=== PATIENT | male | born 1940 | race Caucasian/White ===

== ENCOUNTER 2019-02-14 22:31 | Observation (INO) | payer OTHER, BC ==
[2019-02-14 22:59] LABS: EOS % 5.3 % (0-4.5); HEMATOCRIT 45.3 % (35.4-49); HEMOGLOBIN 14.8 GM/dl (11.7-16.9); LYMPH % 33.3 % (8-40); MCH 29.9 pg (25.7-33.7); MCHC 32.7 g/dl (32.0-35.9); MEAN CELL VOLUME 91.4 fl (80-96); MEAN PLT VOLUME 8.6 fl (7.5-11.1); MONO % 12.2 % (3.8-10.2); NEUT % 48.2 % (42.8-82.8); PLATELET COUNT 163 K/MM3 (134-434); RBC 4.96 M/mm3 (4.00-5.60); RDW 12.6 % (11.9-15.9); WHITE BLOOD COUNT 6.4 K/mm3 (4.0-10.8)
[2019-02-14 23:13] LABS: ALBUMIN 3.8 g/dl (3.4-5.0); BILIRUBIN,TOTAL 0.7 mg/dl (0.2-1); CALCIUM 8.9 mg/dl (8.5-10); CREATININE 1.6 mg/dl (0.55-1.3); POTASSIUM 4.4 mmol/L (3.5-5.1)
--- NOTE | 2019-02-15 01:13 | PDOC ---
Documentation entered by Dilia Ann SCRIBE, acting as scribe for Carmine Matamoros MD. Carmine Matamoros MD: This documentation has been prepared by the Seth gould Brenda, SCRIBE, under my direction and personally reviewed by me in its entirety. I confirm that the documentation accurately reflects all work, treatment, procedures, and medical decision making performed by me. History of Present Illness - General Chief Complaint: Chest Pain Stated Complaint: CHEST PAIN History Source: Patient Exam Limitations: No Limitations - History of Present Illness Initial Comments: 02/14/19 23:03 The patient is an 78 year old male, with a significant PMH of CAD s/p CABG, cardiac stent x2, prostate CA s/p prostatectomy, AFib s/p PPM, HTN, DM and hypercholesterolemia, who presents to the emergency department with chest pain since 8:15pm. As per patients , on the bedside, the patient was frightened by a dog and felt a sudden onset of chest pain. The patient then consulted his ultimate hoops trainer, and was told to come into the ED. The patient denies shortness of breath, headache and dizziness. Denies fever, chills, nausea, vomiting, diarrhea and constipation. Denies dysuria, frequency, urgency and hematuria. Allergies: NKA Past surgical history: cholecystectomy, CABG X1, STENT X2 Social history: Former smoker, quit in 1989. Occasional alcohol use. Focusing Machine Operator: Dr. Richardson 02/14/19 23:10 Past History - Past Medical History Allergies/Adverse Reactions: Allergies Allergy/AdvReac Type Severity Reaction Status Date / Time ciprofloxacin Allergy Severe Difficulty Verified 02/15/16 20:59 Breathing Penicillins Allergy Severe Difficulty Verified 02/15/16 20:59 Breathing procaine HCl [From Novocain] Allergy Severe Difficulty Verified 02/15/16 20:59 Breathing Home Medications: Ambulatory Orders Carvedilol [Coreg] 12.5 mg PO BID 02/15/16 Dabigatran Etexilate Mesylate [Pradaxa -] 150 mg PO BID 02/15/16 Levothyroxine [Synthroid -] 100 mcg PO DAILY 02/15/16 Linagliptin/Metformin HCl [Jentadueto 2.5 mg-1000 mg Tab] 1 each PO BID Simvastatin 10 mg PO HS 02/15/16 Escitalopram Oxalate [Lexapro -] 5 mg PO DAILY 02/14/19 Isosorbide Dinitrate 02/14/19 Ranitidine HCl [Zantac] 150 mg PO DAILY 02/14/19 Sacubitril/Valsartan [Entresto 24 mg-26 mg Tablet] 1 each PO DAILY 02/14/19 Cancer: Yes (PROSTATE) Cardiac Disorders: Yes (AFIB, PPM, LBBB) COPD: No Diabetes: Yes HTN: Yes Hypercholesterolemia: Yes Kidney Stones: Yes Thyroid Disease: Yes - Surgical History Cardiac Surgery: Yes (CABG X1, STENT X1) Cholecystectomy: Yes - Suicide/Smoking/Psychosocial Hx Smoking History: Former smoker Have you smoked in the past 12 months: No If you are a former smoker, when did you quit?: 1989 Alcohol Use: Yes (OCCASIONAL) Drug/Substance Use Hx: No Substance Use Type: None Review of Systems - Review of Systems Able to Perform ROS?: Yes Comments:: 02/14/19 23:03 GENERAL/CONSTITUTIONAL: No fever or chills. No weakness. HEAD, EYES, EARS, NOSE AND THROAT: No change in vision. No ear pain or discharge. No sore throat. CARDIOVASCULAR: +Chest pain. No shortness of breath. RESPIRATORY: No cough, wheezing, or hemoptysis. GASTROINTESTINAL: No nausea, vomiting, diarrhea or constipation. GENITOURINARY: No dysuria, frequency, or change in urination. MUSCULOSKELETAL: No joint or muscle swelling or pain. No neck or back pain. SKIN: No rash NEUROLOGIC: No headache, vertigo, loss of consciousness, or change in strength/ sensation. ENDOCRINE: No increased thirst. No abnormal weight change. HEMATOLOGIC/LYMPHATIC: No anemia, easy bleeding, or history of blood clots. ALLERGIC/IMMUNOLOGIC: No hives or skin allergy. Is the patient limited Guyanese proficient: No *Physical Exam - Vital Signs Last Vital Signs Temp Pulse Resp BP Pulse Ox 98.1 F 60 16 139/76 99 02/14/19 22:51 02/14/19 22:51 02/14/19 22:51 02/14/19 22:51 02/14/19 22:51 - Physical Exam Comments: 02/14/19 23:04 GENERAL: Awake, alert, and fully oriented, in no acute distress HEAD: No signs of trauma EYES: PERRLA, EOMI, sclera anicteric, conjunctiva clear ENT: Auricles normal inspection, hearing grossly normal, nares patent, oropharynx clear without exudates. Moist mucosa NECK: Normal ROM, supple, no lymphadenopathy, JVD, or masses LUNGS: Breath sounds equal, clear to auscultation bilaterally. No wheezes, and no crackles HEART: Regular rate and rhythm, normal S1 and S2, no murmurs, rubs or gallops ABDOMEN: Soft, nontender, normoactive bowel sounds. No guarding, no rebound. No masses EXTREMITIES: Normal range of motion, no edema. No clubbing or cyanosis. No cords, erythema, or tenderness NEUROLOGICAL: Cranial nerves II through XII grossly intact. Normal speech, normal gait SKIN: Warm, Dry, normal turgor, no rashes or lesions noted. ED Treatment Course - LABORATORY CBC & Chemistry Diagram: 02/14/19 22:40 02/14/19 22:40 - ADDITIONAL ORDERS Additional order review: Laboratory Results 02/14/19 02/14/19 22:40 22:40 Sodium 139 Potassium 4.4 Chloride 104 Carbon Dioxide 27 Anion Gap 8 BUN 21.0 H Creatinine 1.6 H Est GFR (CKD-EPI)AfAm 46.47 Est GFR (CKD-EPI)NonAf 40.09 Random Glucose 142 H Calcium 8.9 Total Bilirubin 0.7 AST 20 ALT 12 L Alkaline Phosphatase 65 Troponin I < 0.03 Total Protein 7.0 Albumin 3.8 02/14/19 22:40 RBC 4.96 MCV 91.4 MCHC 32.7 RDW 12.6 MPV 8.6 Neutrophils % 48.2 D Lymphocytes % 33.3 D Monocytes % 12.2 H D Eosinophils % 5.3 H D Basophils % 1.0 D - RADIOLOGY Radiology Studies Ordered: Category Date Time Status CHEST PA & LAT [RAD] Stat Radiology 02/14/19 22:45 Taken Medical Decision Making - Medical Decision Making 02/14/19 23:29 Call placed to Focusing Machine Operator Dr. Sanders at 23:49 Dr. Sanders would like the patient admitted and transferred to [facility] in the morning. Dr. Richardson's office number - 02/15/19 01:13 Heart 6 cp admit for serial enzymes and EKg monitoring. Will add AC for increasing troponin His ultimate hoops trainer requested transfer to [facility] in AM for provocative testing. See contact # above *DC/Admit/Observation/Transfer Diagnosis at time of Disposition: Chest pain Qualifiers: Chest pain type: other chest pain Qualified Code(s): R07.89 - Other chest pain ; R07.8 - Other chest pain - Discharge Dispostion Condition at time of disposition: Stable Decision to Admit order: Yes Decision to Admit order Date/Time: Decision to Admit Order Category Date Time Status Decision to Admit to Hospital Routine Admission 02/15/19 00:07 Active - Referrals - Patient Instructions - Post Discharge Activity
[2019-02-15 01:23] VITALS: BMI 25.2
[2019-02-15 06:49] VITALS: BP 103/60; PULSE 65; TEMP 98.7
--- NOTE | 2019-02-15 08:00 | HP ---
CHIEF COMPLAINT: Chest pain Cardiology: Dr. Sami Shanks, [facility] HISTORY OF PRESENT ILLNESS: 78 year-old male with a PMH significant for HTN, HLD, CAD s/p CABG s/p stents x 2, afib s/p PPM, and NIDDM. Patient presented to the ED for evaluation of chest pain which started at around 8:15pm. Patient was frightened by a dog and felt a sudden onset of chest pain. The pain, described as an intense pressure, lasted until around 11:00pm. It has not recurred. Patient contacted his covered buckle assembler, Dr. Shanks, and arrangements are in progress for transfer to [facility] for cardiac catheterization. ER course was notable for: (1) Troponin neg x 1 (2) ECG: afib @66bpm, LBBB Recent Travel: No PAST MEDICAL HISTORY: Hypertension Hyperlipidemia Coronary artery disease Atrial fibrillation NIDDM PAST SURGICAL HISTORY: Cholecystectomy CABG Cardiac stents x 2 PPM Social History: Smoking: quit 1989 Alcohol: occasional Drugs: no Family History: Allergies ciprofloxacin Allergy (Severe, Verified 02/15/16 20:59) Difficulty Breathing Penicillins Allergy (Severe, Verified 02/15/16 20:59) Difficulty Breathing procaine HCl [From Novocain] Allergy (Severe, Verified 02/15/16 20:59) Difficulty Breathing HOME MEDICATIONS: Home Medications Medication Instructions Recorded Carvedilol [Coreg] 12.5 mg PO BID 02/15/16 Dabigatran Etexilate Mesylate 150 mg PO BID 02/15/16 [Pradaxa -] Levothyroxine [Synthroid -] 100 mcg PO DAILY 02/15/16 Linagliptin/Metformin HCl 1 each PO BID 02/15/16 [Jentadueto 2.5 mg-1000 mg Tab] Simvastatin 10 mg PO HS 02/15/16 Escitalopram Oxalate [Lexapro -] 5 mg PO DAILY 02/14/19 Isosorbide Dinitrate 02/14/19 Ranitidine HCl [Zantac] 150 mg PO DAILY 02/14/19 Sacubitril/Valsartan [Entresto 24 1 each PO BID 02/14/19 mg-26 mg Tablet] REVIEW OF SYSTEMS CONSTITUTIONAL: Absent: fever, chills, diaphoresis, generalized weakness, malaise, loss of appetite, weight change HEENT: Absent: rhinorrhea, nasal congestion, throat pain, throat swelling, difficulty swallowing, mouth swelling, ear pain, eye pain, visual changes CARDIOVASCULAR: +chest pain Absent: syncope, palpitations, irregular heart rate, lightheadedness, peripheral edema RESPIRATORY: Absent: cough, shortness of breath, dyspnea with exertion, orthopnea, wheezing, stridor, hemoptysis GASTROINTESTINAL: Absent: abdominal pain, abdominal distension, nausea, vomiting, diarrhea, constipation, melena, hematochezia GENITOURINARY: Absent: dysuria, frequency, urgency, hesitancy, hematuria, flank pain, genital pain MUSCULOSKELETAL: Absent: myalgia, arthralgia, joint swelling, back pain, neck pain SKIN: Absent: rash, itching, pallor HEMATOLOGIC/IMMUNOLOGIC: Absent: easy bleeding, easy bruising, lymphadenopathy, frequent infections ENDOCRINE: Absent: unexplained weight gain, unexplained weight loss, heat intolerance, cold intolerance NEUROLOGIC: Absent: headache, focal weakness or paresthesias, dizziness, unsteady gait, seizure, mental status changes, bladder or bowel incontinence PSYCHIATRIC: Absent: anxiety, depression, suicidal or homicidal ideation, hallucinations. PHYSICAL EXAMINATION Vital Signs - 24 hr 02/14/19 02/15/19 02/15/19 22:51 01:01 03:36 Temperature 98.1 F 97.7 F 98.7 F Pulse Rate 60 68 65 Respiratory 16 17 17 Rate Blood Pressure 139/76 111/63 103/60 O2 Sat by Pulse 99 100 99 Oximetry (%) GENERAL: Awake, alert, and fully oriented, in no acute distress. HEAD: Normal with no signs of trauma. EYES: Pupils equal, round and reactive to light, extraocular movements intact, sclera anicteric, conjunctiva clear. No lid lag. EARS, NOSE, THROAT: Ears normal, nares patent, oropharynx clear without exudates. Moist mucous membranes. NECK: Normal range of motion, supple without lymphadenopathy, JVD, or masses. LUNGS: Breath sounds equal, clear to auscultation bilaterally. No wheezes, and no crackles. No accessory muscle use. HEART: Regular rate and rhythm, normal S1 and S2 without murmur, rub or gallop. ABDOMEN: Soft, nontender, not distended, normoactive bowel sounds, no guarding, no rebound, no masses. No hepatomegaly or splenomegaly. MUSCULOSKELETAL: Normal range of motion at all joints. No bony deformities or tenderness. No CVA tenderness. UPPER EXTREMITIES: 2+ pulses, warm, well-perfused. No cyanosis. No clubbing. No peripheral edema. LOWER EXTREMITIES: 2+ pulses, warm, well-perfused. No calf tenderness. No peripheral edema. NEUROLOGICAL: Cranial nerves II-XII intact. Normal speech. Normal gait. PSYCHIATRIC: Cooperative. Good eye contact. Appropriate mood and affect. SKIN: Warm, dry, normal turgor, no rashes or lesions noted, normal capillary refill. Laboratory Results - last 24 hr 02/14/19 02/14/19 02/14/19 22:40 22:40 22:40 WBC 6.4 RBC 4.96 Hgb 14.8 Hct 45.3 MCV 91.4 MCH 29.9 MCHC 32.7 RDW 12.6 Plt Count 163 MPV 8.6 Absolute Neuts (auto) 3.1 Neutrophils % 48.2 D Lymphocytes % 33.3 D Monocytes % 12.2 H D Eosinophils % 5.3 H D Basophils % 1.0 D Sodium 139 Potassium 4.4 Chloride 104 Carbon Dioxide 27 Anion Gap 8 BUN 21.0 H Creatinine 1.6 H Est GFR (CKD-EPI)AfAm 46.47 Est GFR (CKD-EPI)NonAf 40.09 Random Glucose 142 H Calcium 8.9 Total Bilirubin 0.7 AST 20 ALT 12 L Alkaline Phosphatase 65 Troponin I < 0.03 Total Protein 7.0 Albumin 3.8 ASSESSMENT/PLAN 78 year-old male with a PMH significant for HTN, HLD, CAD s/p CABG s/p stents x 2, afib s/p PPM, and NIDDM. Admitted for chest pain. Chest pain --troponin neg x 1, second pending --serial ECGs: afib, rate-controlled, LBBB --CXR: unremarkable --will give morning dose of cardiac meds, HOLD Pradaxa --NPO --NS@50mL/hr Dispo: transfer to [facility] for cardiac cath; receiving Dr. Marko Norton Visit type - Emergency Visit Emergency Visit: Yes ED Registration Date: 02/15/19 Care time: The patient presented to the Emergency Department on the above date and was hospitalized for further evaluation of their emergent condition. - New Patient This patient is new to me today: Yes Date on this admission: 02/15/19 - Critical Care Critical Care patient: No
[2019-02-15 08:30] LABS: BASO % 0.9 % (0-2.0); EOS % 4.8 % (0-4.5); HEMATOCRIT 45.2 % (35.4-49); HEMOGLOBIN 14.8 GM/dl (11.7-16.9); LYMPH % 27.3 % (8-40); MCH 29.6 pg (25.7-33.7); MCHC 32.8 g/dl (32.0-35.9); MEAN PLT VOLUME 8.5 fl (7.5-11.1); PLATELET COUNT 145 K/MM3 (134-434); RBC 5.02 M/mm3 (4.00-5.60); RDW 12.7 % (11.9-15.9); WHITE BLOOD COUNT 5.8 K/mm3 (4.0-10.8)
[2019-02-15] MEDS ORDERED: LEVOTHYROXINE NA 75 MCG TABLET (FP) PO SCH (08:45)
[2019-02-15] MEDS ORDERED: SODIUM CHLORIDE 1,000 ML IV SCH (08:45)
--- NOTE | 2019-02-15 08:58 | DS ---
Physical Exam: SUBJECTIVE: Patient seen and examined. No further episodes of chest pain. OBJECTIVE: Vital Signs Period Temp Pulse Resp BP Sys/Hernández Pulse Ox Last 24 Hr 97.7 F-98.7 F 60-68 16-17 103-139/60-76 99-100 PHYSICAL EXAM GENERAL: The patient is awake, alert, and fully oriented, in no acute distress. LUNGS: Breath sounds equal, clear to auscultation bilaterally, no wheezes, no crackles, no accessory muscle use. HEART: Regular rate and rhythm, S1, S2 ABDOMEN: Soft, nontender, nondistended EXTREMITIES: 2+ pulses, warm, well-perfused, no edema. NEUROLOGICAL: Cranial nerves II through XII grossly intact. Normal speech, gait not observed. LABS Laboratory Results - last 24 hr 02/14/19 02/14/19 02/14/19 22:40 22:40 22:40 WBC 6.4 RBC 4.96 Hgb 14.8 Hct 45.3 MCV 91.4 MCH 29.9 MCHC 32.7 RDW 12.6 Plt Count 163 MPV 8.6 Absolute Neuts (auto) 3.1 Neutrophils % 48.2 D Lymphocytes % 33.3 D Monocytes % 12.2 H D Eosinophils % 5.3 H D Basophils % 1.0 D Sodium 139 Potassium 4.4 Chloride 104 Carbon Dioxide 27 Anion Gap 8 BUN 21.0 H Creatinine 1.6 H Est GFR (CKD-EPI)AfAm 46.47 Est GFR (CKD-EPI)NonAf 40.09 Random Glucose 142 H Calcium 8.9 Total Bilirubin 0.7 AST 20 ALT 12 L Alkaline Phosphatase 65 Troponin I < 0.03 Total Protein 7.0 Albumin 3.8 02/15/19 08:18 WBC 5.8 RBC 5.02 Hgb 14.8 Hct 45.2 MCV 90.0 MCH 29.6 MCHC 32.8 RDW 12.7 Plt Count 145 MPV 8.5 Absolute Neuts (auto) 3.0 Neutrophils % 54.0 Lymphocytes % 27.3 Monocytes % 13.0 H Eosinophils % 4.8 H Basophils % 0.9 Sodium Potassium Chloride Carbon Dioxide Anion Gap BUN Creatinine Est GFR (CKD-EPI)AfAm Est GFR (CKD-EPI)NonAf Random Glucose Calcium Total Bilirubin AST ALT Alkaline Phosphatase Troponin I Total Protein Albumin HOSPITAL COURSE: Date of Admission:02/15/19 Date of Discharge: 02/15/19 Pre hospital course 78 year-old male with a PMH significant for HTN, HLD, CAD s/p CABG s/p stents x 2, afib s/p PPM, and NIDDM. Patient presented to the ED for evaluation of chest pain which started at around 8:15pm. Patient was frightened by a dog and felt a sudden onset of chest pain. The pain, described as an intense pressure, lasted until around 11:00pm. It has not recurred. Patient contacted his driver recruiter, Dr. Shanks, and arrangements are in progress for transfer to [facility] for cardiac catheterization. ER course (1) Troponin neg x 1 (2) ECG: afib @66bpm, LBBB Subsequent hospital course 78 year-old male with a PMH significant for HTN, HLD, CAD s/p CABG s/p stents x 2, afib s/p PPM, and NIDDM. Admitted for chest pain. Chest pain --troponin neg x 1, second pending at time of discharge --serial ECGs: afib, rate-controlled, LBBB --CXR: unremarkable --gave morning dose of cardiac meds, Pradaxa held --NPO --NS@50mL/hr Dispo: transferred to [facility] for cardiac cath; receiving Dr. Marko Norton; full code Minutes to complete discharge: 35 Discharge Summary Reason For Visit: CHEST PAIN Current Active Problems Chest pain (Acute) Condition: Stable - Instructions Disposition: TRANSFER ACUTE CARE/OTHER HOSP - Home Medications Comprehensive Discharge Medication List: Ambulatory Orders Carvedilol [Coreg] 12.5 mg PO BID 02/15/16 Dabigatran Etexilate Mesylate [Pradaxa -] 150 mg PO BID 02/15/16 Levothyroxine [Synthroid -] 75 mcg PO DAILY 02/15/16 Linagliptin/Metformin HCl [Jentadueto 2.5 mg-1000 mg Tab] 1 each PO BID Simvastatin 10 mg PO HS 02/15/16 Escitalopram Oxalate [Lexapro -] 5 mg PO DAILY 02/14/19 Isosorbide Dinitrate 30 mg PO DAILY 02/14/19 Ranitidine HCl [Zantac] 150 mg PO DAILY 02/14/19 Sacubitril/Valsartan [Entresto 24 mg-26 mg Tablet] 1 each PO BID 02/14/19 Clopidogrel Bisulfate [Plavix] 75 mg PO DAILY 02/15/19 Empagliflozin [Jardiance] 10 mg PO DAILY 02/15/19 This patient is new to me today: Yes Date on this admission: 02/17/19 Emergency Visit: Yes ED Registration Date: 02/15/19 Care time: The patient presented to the Emergency Department on the above date and was hospitalized for further evaluation of their emergent condition. Critical Care patient: No - Discharge Referral Referred to [facility] Med P.C.: No
[2019-02-15 09:12] LABS: INR 1.6 (0.82-1.09); PROTHROMBIN TIME (PATIENT) 17.8 SEC (10.2-13.0)
[2019-02-15 09:21] LABS: ACTIVATED PTT 79.6 SECONDS (25.2-36.5)
[2019-02-15] MEDS ORDERED: RANITIDINE HCL 150 MG TABLET (FP) PO SCH (10:00)
[2019-02-15] MEDS ORDERED: CLOPIDOGREL BISULFATE 75 MG TABLET (FP) PO SCH (10:00)
[2019-02-15] MEDS ORDERED: SACUBITRIL/VALSARTAN 24 MG-26 MG TABLET PO SCH (10:00)
[2019-02-15] MEDS ORDERED: ISOSORBIDE DINITRATE 10 MG TABLET (FP) PO SCH (10:00)
[2019-02-15] MEDS ORDERED: CARVEDILOL 12.5 MG TABLET (FP) PO SCH (10:00)
[2019-02-15] MEDS ORDERED: ESCITALOPRAM OXALATE 10 MG TABLET (FP) PO SCH (10:00)
[2019-02-15] MEDS ORDERED: PATIENT'S OWN MEDICATION (NON-FORMULARY) (Escitalopram Oxalate [Lexapro -] 5 MG) PO SCH (10:00)
--- NOTE | 2019-02-15 10:01 | EKG ---
Test Reason : Blood Pressure : / mmHG Vent. Rate : 066 BPM Atrial Rate : 066 BPM P-R Int : 000 ms QRS Dur : 146 ms QT Int : 430 ms P-R-T Axes : 000 042 261 degrees QTc Int : 450 ms ATRIAL FIBRILLATION LEFT BUNDLE BRANCH BLOCK ABNORMAL ECG NO PREVIOUS ECGS AVAILABLE Confirmed by DIANNE MANCUSO MD ([id number]) on 02/15/2019 10:00:52 AM Referred By: Confirmed By:DIANNE MANCUSO MD
[2019-02-15] MEDS ORDERED: INSULIN (NOVOLOG) ASPART 100 UNITS/ML 10ML VIAL SQ SCH (11:00)
[2019-02-15 11:03] LABS: N-TERMINAL BNP 421.9 pg/ml (5-450)
[2019-02-15] MEDS ORDERED: PATIENT'S OWN MEDICATION (NON-FORMULARY) (Simvastatin [Simvastatin] 10 MG) PO SCH (22:00)
[2019-02-15] MEDS ORDERED: ATORVASTATIN CA 10 MG TABLET (FP) PO SCH (22:00)
--- NOTE | 2019-02-16 14:45 | EKG ---
Test Reason : Blood Pressure : / mmHG Vent. Rate : 073 BPM Atrial Rate : 092 BPM P-R Int : 000 ms QRS Dur : 148 ms QT Int : 428 ms P-R-T Axes : 000 010 254 degrees QTc Int : 471 ms ATRIAL FIBRILLATION WITH PREMATURE VENTRICULAR OR ABERRANTLY CONDUCTED COMPLEXES LEFT BUNDLE BRANCH BLOCK ABNORMAL ECG WHEN COMPARED WITH ECG OF 14-FEB-2019 22:39, NO SIGNIFICANT CHANGE WAS FOUND Confirmed by Arsalan Lipscomb MD ([id number]) on 02/16/2019 2:45:18 PM Referred By: ZEUS REY Confirmed By:Arsalan Lipscomb MD
== END 2019-02-15 09:29 | disposition short-term general hospital (02) ==
LOC: FER 22:31 → FM/S 02-15 00:07 → UNDOADMOB 02-15 00:26
PROVIDERS: ADMIT Internal Medicine; ATTEND Nurse Practitioner Acute Care
PROC: 3E0337Z Introduction of Electrolytic and Water Balance Substance into Peripheral Vein, Percutaneous Approach (ICD-10-PCS; principal; 2019-02-15)
DX: R07.89 Other chest pain (principal); I10 Essential (primary) hypertension; I25.10 Atherosclerotic heart disease of native coronary artery without angina pectoris; E11.9 Type 2 diabetes mellitus without complications; E78.5 Hyperlipidemia, unspecified; I48.91 Unspecified atrial fibrillation; Z85.46 Personal history of malignant neoplasm of prostate; Z90.79 Acquired absence of other genital organ(s); Z87.891 Personal history of nicotine dependence; Z95.5 Presence of coronary angioplasty implant and graft; Z95.1 Presence of aortocoronary bypass graft; Z88.0 Allergy status to penicillin; Z88.1 Allergy status to other antibiotic agents
CPT/HCPCS: 36415; 71046-TC-FY; 80053; 83036; 83735; 83880; 84443; 84484; 85025; 85027; 85610; 85730; 93005; 96360; 96361; 99283-25; G0378; J7030

== ENCOUNTER 2020-07-09 16:45 | Emergency (ER) | payer BC, OTHER ==
[2020-07-09] MEDS ORDERED: DIPHTH,PERTUSS(ACELL),TET 0.5 ML DISP.SYRIN IM ONE ×2 (17:17→17:19)
[2020-07-09 17:20] VITALS: BP 115/69; PULSE 73; TEMP 97.8; BMI 21.6
== END 2020-07-09 17:39 | disposition home or self-care (01) ==
LOC: FER 16:45
PROC: 3E0234Z Introduction of Serum, Toxoid and Vaccine into Muscle, Percutaneous Approach (ICD-10-PCS; principal; 2020-07-09)
DX: S01.312A Laceration without foreign body of left ear, initial encounter (principal)
CPT/HCPCS: 90715; 99284-25

== ENCOUNTER 2020-11-24 14:44 | Observation (INO) | payer BC, OTHER ==
[2020-11-24] MEDS ORDERED: SODIUM CHLORIDE 0.9% 1000 ML INFUS.BAG IV ONE (15:47)
[2020-11-24 16:52] LABS: BASO % 2.9 % (0-2.0); EOS % 7.7 % (0-4.5); HEMATOCRIT 33.7 % (35.4-49); LYMPH % 26.2 % (8-40); MCH 31.1 pg (25.7-33.7); MCHC 32.7 g/dl (32.0-35.9); MEAN CELL VOLUME 95.1 fl (80-96); MEAN PLT VOLUME 8.8 fl (7.5-11.1); MONO % 11.4 % (3.8-10.2); NEUT % 51.8 % (42.8-82.8); PLATELET COUNT 167 K/MM3 (134-434); RBC 3.55 M/mm3 (4.00-5.60)
[2020-11-24 17:06] LABS: INR 2.79 (0.82-1.09); PROTHROMBIN TIME (PATIENT) 29.2 SEC (10.2-13.0)
[2020-11-24 17:30] LABS: ALBUMIN 4.3 g/dl (3.4-5.0); BILIRUBIN,TOTAL 0.6 mg/dl (0.2-1); CALCIUM 9.2 mg/dl (8.5-10); CREATININE 1.7 mg/dl (0.55-1.3); MAGNESIUM 1.3 mg/dL (1.8-2.4); TOT PROT 6.9 g/dl (6.4-8.2)
[2020-11-24] MEDS ORDERED: MAGNESIUM 1GM/D5W - 1 GM/100 ML IVPB IVPB ONE (17:55)
[2020-11-24 22:53] VITALS: BMI 21.6
[2020-11-25 05:07] LABS: BLOOD UREA NITROGEN 32.3 mg/dL (7-18); CALCIUM 8.9 mg/dL (8.5-10.1); CREATININE 1.7 mg/dL (0.55-1.3); MAGNESIUM 1.7 mg/dL (1.8-2.4)
[2020-11-25] MEDS ORDERED: MAGNESIUM SULF 50% (8.12 MEQ/2 ML-1 GM VIAL) IVPB ONE ×2 (05:12→14:47)
[2020-11-25] MEDS ORDERED: FAMOTIDINE 20 MG TABLET PO PRN (05:20)
[2020-11-25] MEDS: RANOLAZINE E.R. 500 MG TABLET (FP) PO SCH ×3 (06:52→21:36)
[2020-11-25] MEDS: DEXTROSE 5%-NORMAL SALINE 1,000 ML IV SCH (06:53)
[2020-11-25] MEDS ORDERED: LEVOTHYROXINE NA 75 MCG TABLET (FP) PO SCH (07:00)
[2020-11-25 08:14] LABS: BASO % 1.4 % (0-2.0); EOS % 6.1 % (0-4.5); HEMATOCRIT 27.4 % (35.4-49); HEMOGLOBIN 9.4 GM/dl (11.7-16.9); LYMPH % 31.9 % (8-40); MCH 32.5 pg (25.7-33.7); MCHC 34.4 g/dl (32.0-35.9); MEAN CELL VOLUME 94.5 fl (80-96); MEAN PLT VOLUME 8.3 fl (7.5-11.1); MONO % 13.1 % (3.8-10.2); NEUT % 47.5 % (42.8-82.8); PLATELET COUNT 114 K/MM3 (134-434); RDW 13.8 % (11.9-15.9); WHITE BLOOD COUNT 4.1 K/mm3 (4.0-10.8)
[2020-11-25 08:42] LABS: CREATININE 1.5 mg/dl (0.55-1.3)
[2020-11-25 08:43] LABS: ALBUMIN 3.4 g/dl (3.4-5.0); BILIRUBIN,TOTAL 0.5 mg/dl (0.2-1); CALCIUM 8.6 mg/dl (8.5-10); MAGNESIUM 1.6 mg/dL (1.8-2.4); TOT PROT 5.7 g/dl (6.4-8.2)
[2020-11-25] MEDS ORDERED: CLOPIDOGREL BISULFATE 75 MG TABLET (FP) PO SCH (10:00)
[2020-11-25] MEDS ORDERED: PATIENT'S OWN MEDICATION (NON-FORMULARY) (Simvastatin [Simvastatin] 10 MG Tablet) PO SCH (10:00)
[2020-11-25] MEDS ORDERED: PATIENT'S OWN MEDICATION (NON-FORMULARY) (Escitalopram Oxalate [Lexapro -] 5 MG Tablet) PO SCH (10:00)
[2020-11-25] MEDS: ESCITALOPRAM OXALATE 10 MG TABLET PO SCH (10:32)
[2020-11-25] MEDS: DABIGATRAN ETEXILATE MESYLATE 150 MG CAPSULE PO SCH ×2 (10:33→21:37)
[2020-11-25] MEDS ORDERED: RANOLAZINE E.R. 500 MG TABLET (FP) PO SCH (14:00)
[2020-11-25 14:32] LABS: CALCIUM 8.5 mg/dl (8.5-10); CREATININE 1.4 mg/dl (0.55-1.3); MAGNESIUM 1.7 mg/dL (1.8-2.4)
[2020-11-25] MEDS: INSULIN (NOVOLOG) ASPART 100 UNITS/ML 10ML VIAL SQ SCH ×2 (17:00→21:47)
[2020-11-25] MEDS: SODIUM ZIRCONIUM CYCLOSILICATE (LOKELMA) 5 GM PACKET PO SCH ×2 (17:10→21:37)
[2020-11-25] MEDS: ATORVASTATIN CA 10 MG TABLET (FP) PO SCH (21:37)
[2020-11-25] MEDS: SACUBITRIL/VALSARTAN 24 MG-26 MG TABLET PO SCH (21:37)
[2020-11-25] MEDS: CARVEDILOL 12.5 MG TABLET (FP) PO SCH (21:37)
[2020-11-25] MEDS ORDERED: SACUBITRIL/VALSARTAN 49 MG-51 MG TABLET PO SCH (22:00)
[2020-11-25] MEDS ORDERED: DABIGATRAN ETEXILATE MESYLATE 150 MG CAPSULE PO SCH (22:00)
[2020-11-26] MEDS ORDERED: PT OWN MED DRAWER 7, Y5N ONE ×2 (06:36→11:02)
[2020-11-26] MEDS: LEVOTHYROXINE NA 75 MCG TABLET (FP) PO SCH (06:40)
[2020-11-26] MEDS: RANOLAZINE E.R. 500 MG TABLET (FP) PO SCH ×3 (06:42→21:20)
[2020-11-26] MEDS: INSULIN (NOVOLOG) ASPART 100 UNITS/ML 10ML VIAL SQ SCH ×4 (06:42→22:28)
[2020-11-26] MEDS: DEXTROSE 5%-NORMAL SALINE 1,000 ML IV SCH (06:43)
[2020-11-26] MEDS: SODIUM ZIRCONIUM CYCLOSILICATE (LOKELMA) 5 GM PACKET PO SCH (06:52)
[2020-11-26 08:15] LABS: BASO % 1.2 % (0-2.0); EOS % 6.6 % (0-4.5); HEMATOCRIT 30.1 % (35.4-49); HEMOGLOBIN 10.5 GM/dl (11.7-16.9); LYMPH % 28.2 % (8-40); MCH 33.1 pg (25.7-33.7); MCHC 34.9 g/dl (32.0-35.9); MEAN CELL VOLUME 94.9 fl (80-96); MEAN PLT VOLUME 8.6 fl (7.5-11.1); MONO % 10.7 % (3.8-10.2); NEUT % 53.3 % (42.8-82.8); PLATELET COUNT 124 K/MM3 (134-434); RBC 3.17 M/mm3 (4.00-5.60); RDW 13.6 % (11.9-15.9); WHITE BLOOD COUNT 4.9 K/mm3 (4.0-10.8)
[2020-11-26] MEDS ORDERED: SODIUM ZIRCONIUM CYCLOSILICATE (LOKELMA) 5 GM PACKET PO SCH ×2 (09:00→11:00)
[2020-11-26 09:45] LABS: ALBUMIN 3.6 g/dl (3.4-5.0); BILIRUBIN,TOTAL 0.5 mg/dl (0.2-1); CREATININE 1.5 mg/dl (0.55-1.3); MAGNESIUM 1.9 mg/dL (1.8-2.4); TOT PROT 5.9 g/dl (6.4-8.2)
[2020-11-26 09:47] LABS: CALCIUM 8.7 mg/dl (8.5-10)
[2020-11-26] MEDS ORDERED: CLOPIDOGREL BISULFATE 75 MG TABLET (FP) PO SCH (10:00)
[2020-11-26] MEDS ORDERED: ISOSORBIDE MONONITRATE 30 MG TAB.SR.24H (FP) PO SCH (10:00)
[2020-11-26] MEDS: ESCITALOPRAM OXALATE 10 MG TABLET PO SCH (10:29)
[2020-11-26] MEDS: DABIGATRAN ETEXILATE MESYLATE 150 MG CAPSULE PO SCH ×2 (10:29→21:18)
[2020-11-26] MEDS: CARVEDILOL 12.5 MG TABLET (FP) PO SCH ×2 (10:29→21:18)
[2020-11-26] MEDS: SACUBITRIL/VALSARTAN 24 MG-26 MG TABLET PO SCH ×2 (10:29→21:20)
[2020-11-26] MEDS: ATORVASTATIN CA 10 MG TABLET (FP) PO SCH (21:18)
[2020-11-27] MEDS: RANOLAZINE E.R. 500 MG TABLET (FP) PO SCH (06:27)
[2020-11-27] MEDS: INSULIN (NOVOLOG) ASPART 100 UNITS/ML 10ML VIAL SQ SCH ×2 (06:28→11:30)
[2020-11-27] MEDS: LEVOTHYROXINE NA 75 MCG TABLET (FP) PO SCH (06:28)
[2020-11-27 08:01] LABS: INR 3.52 (0.82-1.09); PROTHROMBIN TIME (PATIENT) 36.3 SEC (10.2-13.0)
[2020-11-27 08:50] LABS: BASO % 1.8 % (0-2.0); EOS % 5.9 % (0-4.5); HEMATOCRIT 30.2 % (35.4-49); LYMPH % 21.8 % (8-40); MCH 31.3 pg (25.7-33.7); MCHC 33.1 g/dl (32.0-35.9); MEAN CELL VOLUME 94.5 fl (80-96); MEAN PLT VOLUME 8.4 fl (7.5-11.1); MONO % 12.4 % (3.8-10.2); NEUT % 58.1 % (42.8-82.8); PLATELET COUNT 121 K/MM3 (134-434); RDW 13.6 % (11.9-15.9); WHITE BLOOD COUNT 4.9 K/mm3 (4.0-10.8)
[2020-11-27] MEDS: CARVEDILOL 12.5 MG TABLET (FP) PO SCH (09:38)
[2020-11-27] MEDS: DABIGATRAN ETEXILATE MESYLATE 150 MG CAPSULE PO SCH (09:38)
[2020-11-27] MEDS: SACUBITRIL/VALSARTAN 24 MG-26 MG TABLET PO SCH (09:39)
[2020-11-27] MEDS: ESCITALOPRAM OXALATE 10 MG TABLET PO SCH (09:39)
[2020-11-27 09:51] LABS: ALBUMIN 3.1 g/dl (3.4-5.0); BILIRUBIN,TOTAL 0.4 mg/dL (0.2-1); BLOOD UREA NITROGEN 21.5 mg/dL (7-18); CALCIUM 7.9 mg/dL (8.5-10.1); CREATININE 1.5 mg/dL (0.55-1.3); MAGNESIUM 1.7 mg/dL (1.8-2.4); TOT PROT 5.6 g/dl (6.4-8.2)
[2020-11-27] MEDS ORDERED: MAGNESIUM SULF 50% (8.12 MEQ/2 ML-1 GM VIAL) IVPB ONE (09:55)
[2020-11-27] MEDS ORDERED: SODIUM BICARBONATE 650 MG TABLET PO SCH (10:00)
[2020-11-27] MEDS ORDERED: MAGNESIUM SULFATE IN WATER 2 GM/50 ML IVPB IVPB ONE (10:00)
[2020-11-27] MEDS ORDERED: SODIUM BICARBONATE 325 MG TABLET PO SCH (10:00)
[2020-11-27 14:07] VITALS: BP 106/62; PULSE 78; TEMP 97.6
[2020-11-27] MEDS ORDERED: MAGNESIUM OXIDE 400 MG TABLET (FP) PO ONE (14:11)
== END 2020-11-27 15:40 | disposition home or self-care (01) ==
LOC: FER 14:44 → FM/S 17:45 → INTOOBSV 17:45
PROVIDERS: ADMIT Internal Medicine; ATTEND Nurse Practitioner Acute Care
PROC: 3E033GC Introduction of Other Therapeutic Substance into Peripheral Vein, Percutaneous Approach (ICD-10-PCS; principal; 2020-11-24)
PROC: 3E033GC Introduction of Other Therapeutic Substance into Peripheral Vein, Percutaneous Approach (ICD-10-PCS; 2020-11-24)
PROC: 3E0337Z Introduction of Electrolytic and Water Balance Substance into Peripheral Vein, Percutaneous Approach (ICD-10-PCS; 2020-11-24)
DX: I25.10 Atherosclerotic heart disease of native coronary artery without angina pectoris (principal); R42 Dizziness and giddiness; E11.9 Type 2 diabetes mellitus without complications; I10 Essential (primary) hypertension; E78.5 Hyperlipidemia, unspecified; I44.7 Left bundle-branch block, unspecified; Z95.1 Presence of aortocoronary bypass graft; I95.9 Hypotension, unspecified; R19.7 Diarrhea, unspecified; R51.9 Headache, unspecified; D64.9 Anemia, unspecified; Z88.0 Allergy status to penicillin; Z88.8 Allergy status to other drugs, medicaments and biological substances; Z95.5 Presence of coronary angioplasty implant and graft; Z87.891 Personal history of nicotine dependence
CPT/HCPCS: 36415; 70450-TC; 71045-TC-FY; 76775-TC; 76856-TC; 80048; 80053; 80061; 81003; 82272; 82962; 83735; 84100; 84443; 84484; 85025; 85610; 85730; 86850; 86900; 86901; 87040; 87045; 87046; 87086; 87324; 87449; 93005; 93880-TC; 97116-GP; 97162-GP; 99285-25; C9803; G0378; U0003; U0005

== ENCOUNTER 2021-08-07 07:31 | Day surgery (SDC) | payer BC, OTHER ==
[2021-08-06 12:17] VITALS: BMI 23.6
[2021-08-07] MEDS ORDERED: OFLOXACIN 0.3% OPHTHALMIC SOLUTION 5 ML BOTTLE ONE (07:52)
[2021-08-07] MEDS ORDERED: KETOROLAC TROMETHAMINE 0.5% EYE DROP 1 DROP DROPS ONE (07:52)
[2021-08-07] MEDS ORDERED: PHENYLEPHRINE 2.5% OPHTH SOLN 15 ML BOTTLE ONE (07:52)
[2021-08-07] MEDS ORDERED: TROPICAMIDE 1% OPHTH SOLN 15 ML BOTTLE ONE (07:52)
[2021-08-07] MEDS ORDERED: CYCLOPENTOLATE HCL 1% OPHTH SOLN 2 ML BOTTLE ONE (07:52)
[2021-08-07] MEDS ORDERED: CYCLOPENTOLATE HCL 1% OPHTH SOLN 2 ML BOTTLE OS SCH (08:00)
[2021-08-07] MEDS ORDERED: KETOROLAC TROMETHAMINE 0.5% EYE DROP 1 DROP DROPS OS SCH (08:00)
[2021-08-07] MEDS ORDERED: TROPICAMIDE 1% OPHTH SOLN 15 ML BOTTLE OS SCH (08:00)
[2021-08-07] MEDS ORDERED: OFLOXACIN 0.3% OPHTHALMIC SOLUTION 5 ML BOTTLE OS SCH (08:00)
[2021-08-07] MEDS ORDERED: PHENYLEPHRINE 2.5% OPHTH SOLN 15 ML BOTTLE OS SCH (08:00)
[2021-08-07] MEDS: PHENYLEPHRINE 2.5% OPHTH SOLN 15 ML BOTTLE OS SCH ×3 (08:10→08:20)
[2021-08-07] MEDS: CYCLOPENTOLATE HCL 1% OPHTH SOLN 2 ML BOTTLE OS SCH ×3 (08:10→08:20)
[2021-08-07] MEDS: TROPICAMIDE 1% OPHTH SOLN 15 ML BOTTLE OS SCH ×3 (08:10→08:20)
[2021-08-07] MEDS: KETOROLAC TROMETHAMINE 0.5% EYE DROP 1 DROP DROPS OS SCH ×3 (08:10→08:20)
[2021-08-07] MEDS: OFLOXACIN 0.3% OPHTHALMIC SOLUTION 5 ML BOTTLE OS SCH ×3 (08:10→08:20)
[2021-08-07] MEDS ORDERED: BACITRACIN/POLYMYXIN OPH OINT 3.5 GM TUBE ONE (09:28)
[2021-08-07] MEDS ORDERED: POVIDONE-IODINE 5% OPHTHALMIC PREP 30 ML SOLUTION ONE (09:28)
[2021-08-07] MEDS ORDERED: ACETYLCHOLINE 1:100 INTRA-OCUL 20 MG/2 ML KIT ONE (09:28)
[2021-08-07] MEDS ORDERED: BETAXOLOL HCL 0.25% OPHTHALMIC 10 ML DROPSBTL ONE (09:28)
[2021-08-07] MEDS ORDERED: EPI-SHUGARCAINE (EPINEPHRINE 0.025% & LIDOCAINE-PF 0.75%) 4ML ONE (09:28)
[2021-08-07] MEDS ORDERED: TETRACAINE 0.5% OPHTH SOLN 2 ML BOTTLE ONE (09:28)
[2021-08-07] MEDS ORDERED: PHENYLEPHRINE/KETOROLAC 4 ML VIAL IO ONE (09:28)
[2021-08-07] MEDS ORDERED: NEO/POLYMYX B SULF/DEXAMETH OPHTHALMIC 5ML BOTTLE ONE (09:29)
[2021-08-07] MEDS ORDERED: MIDAZOLAM HCL 2 MG/2 ML SINGLE DOSE VIAL ONE (09:40)
[2021-08-07] MEDS ORDERED: ACETAMINOPHEN 325 MG TABLET (FP) PO PRN (10:49)
[2021-08-07 11:34] VITALS: TEMP 97.8
[2021-08-07 11:38] VITALS: BP 88/55; PULSE 72
== END 2021-08-07 11:40 | disposition home or self-care (01) ==
LOC: FASU 07:31
PROVIDERS: ATTEND Ophthalmology
PROC: 08RK3JZ Replacement of Left Lens with Synthetic Substitute, Percutaneous Approach (ICD-10-PCS; principal; 2021-08-07 10:08)
DX: H26.9 Unspecified cataract (principal); H57.03 Miosis
CPT/HCPCS: 82962; J1097

== ENCOUNTER 2021-08-28 07:37 | Day surgery (SDC) | payer BC, OTHER ==
[2021-08-07 09:05] VITALS: BMI 23.6
[2021-08-28] MEDS ORDERED: CYCLOPENTOLATE HCL 1% OPHTH SOLN 2 ML BOTTLE ONE (07:43)
[2021-08-28] MEDS ORDERED: PHENYLEPHRINE 2.5% OPHTH SOLN 15 ML BOTTLE ONE (07:43)
[2021-08-28] MEDS ORDERED: OFLOXACIN 0.3% OPHTHALMIC SOLUTION 5 ML BOTTLE ONE (07:43)
[2021-08-28] MEDS ORDERED: KETOROLAC TROMETHAMINE 0.5% EYE DROP 1 DROP DROPS ONE (07:43)
[2021-08-28] MEDS ORDERED: TROPICAMIDE 1% OPHTH SOLN 15 ML BOTTLE ONE (07:43)
[2021-08-28] MEDS: KETOROLAC TROMETHAMINE 0.5% EYE DROP 1 DROP DROPS OD SCH ×3 (07:55→08:05)
[2021-08-28] MEDS: PHENYLEPHRINE 2.5% OPHTH SOLN 15 ML BOTTLE OD SCH ×3 (07:55→08:05)
[2021-08-28] MEDS: CYCLOPENTOLATE HCL 1% OPHTH SOLN 2 ML BOTTLE OD SCH ×3 (07:55→08:05)
[2021-08-28] MEDS: TROPICAMIDE 1% OPHTH SOLN 15 ML BOTTLE OD SCH ×3 (07:55→08:05)
[2021-08-28] MEDS: OFLOXACIN 0.3% OPHTHALMIC SOLUTION 5 ML BOTTLE OD SCH ×3 (07:55→08:05)
[2021-08-28] MEDS ORDERED: POVIDONE-IODINE 5% OPHTHALMIC PREP 30 ML SOLUTION ONE (09:09)
[2021-08-28] MEDS ORDERED: BACITRACIN/POLYMYXIN OPH OINT 3.5 GM TUBE ONE (09:09)
[2021-08-28] MEDS ORDERED: NEO/POLYMYX B SULF/DEXAMETH OPHTHALMIC 5ML BOTTLE ONE (09:09)
[2021-08-28] MEDS ORDERED: BETAXOLOL HCL 0.25% OPHTHALMIC 10 ML DROPSBTL ONE (09:09)
[2021-08-28] MEDS ORDERED: EPI-SHUGARCAINE (EPINEPHRINE 0.025% & LIDOCAINE-PF 0.75%) 4ML ONE (09:09)
[2021-08-28] MEDS ORDERED: TETRACAINE 0.5% OPHTH SOLN 2 ML BOTTLE ONE (09:09)
[2021-08-28] MEDS ORDERED: MIDAZOLAM HCL 2 MG/2 ML SINGLE DOSE VIAL ONE (09:25)
[2021-08-28] MEDS ORDERED: ACETAMINOPHEN 325 MG TABLET (FP) PO PRN ×2 (10:20→11:31)
[2021-08-28 10:22] VITALS: PULSE 74; TEMP 97.6
[2021-08-28 10:56] VITALS: BP 100/64
== END 2021-08-28 11:05 | disposition home or self-care (01) ==
LOC: FASU 07:37
PROVIDERS: ATTEND Ophthalmology
PROC: 08RJ3JZ Replacement of Right Lens with Synthetic Substitute, Percutaneous Approach (ICD-10-PCS; principal; 2021-08-28 09:36)
DX: H26.9 Unspecified cataract (principal); H57.03 Miosis

== ENCOUNTER 2023-05-23 09:44 | Inpatient (IN) | payer BC, OTHER ==
[2023-05-23] MEDS ORDERED: FAMOTIDINE 20 MG TABLET PO ONE (10:35)
[2023-05-23 10:37] LABS: HEMATOCRIT 49.3 % (35.4-49); HEMOGLOBIN 16.6 G/dL (11.7-16.9); MCH 30.9 pg (25.7-33.7); MCHC 33.6 g/dl (32.0-35.9); MEAN PLT VOLUME 8.4 fl (7.5-11.1); PLATELET COUNT 135.5 10^3/uL (134-434); RBC 5.36 10^6/uL (4.00-5.60); RDW 14.6 % (11.9-15.9); WHITE BLOOD COUNT 9.6 10^3/uL (4.0-10.8)
[2023-05-23] MEDS ORDERED: FAMOTIDINE 20 MG TABLET ONE (10:37)
[2023-05-23] MEDS ORDERED: ASPIRIN 81 MG CHEWABLE TABLETS PO ONE (10:45)
[2023-05-23 10:48] LABS: INR 2.37 (0.83-1.09); PROTHROMBIN TIME (PATIENT) 27.3 SEC (9.7-13.0)
[2023-05-23 10:51] LABS: ACTIVATED PTT 52.5 SECONDS (25.2-36.5)
[2023-05-23] MEDS ORDERED: ASPIRIN 81 MG CHEWABLE TABLETS ONE (11:13)
[2023-05-23 11:48] LABS: PLATELET ESTIMATE SLT DECREASE
[2023-05-23 12:41] LABS: POTASSIUM 4.9 mmol/L (3.5-5.1)
[2023-05-23 12:43] LABS: CALCIUM 8.7 mg/dL (8.5-10.1)
[2023-05-23 12:44] LABS: ALBUMIN 3.7 g/dl (3.4-5.0); BLOOD UREA NITROGEN 52.5 mg/dL (7-18)
[2023-05-23 12:47] LABS: CREATININE 2.7 mg/dL (0.55-1.3)
[2023-05-23 12:48] LABS: BILIRUBIN,TOTAL 0.6 mg/dL (0.2-1)
[2023-05-23 12:49] LABS: TOT PROT 7.4 g/dl (6.4-8.2)
[2023-05-23] MEDS ORDERED: CARVEDILOL 12.5 MG TABLET (FP) PO ONE (12:49)
[2023-05-23] MEDS ORDERED: SACUBITRIL/VALSARTAN 24 MG-26 MG TABLET PO SCH ×2 (13:00→22:00)
[2023-05-23] MEDS ORDERED: SODIUM CHLORIDE 500 ML IV STA (13:36)
[2023-05-23 15:42] VITALS: BMI 25.2
[2023-05-23] MEDS ORDERED: ATORVASTATIN CA 10 MG TABLET (FP) PO SCH (16:16)
[2023-05-23] MEDS ORDERED: INSULIN SLIDING SCALE (NOVOLOG) 1 VIAL SQ SCH (16:30)
[2023-05-23] MEDS: INSULIN SLIDING SCALE (NOVOLOG) 1 VIAL SQ SCH ×2 (17:40→22:17)
[2023-05-23] MEDS ORDERED: RIVAROXABAN 15 MG TABLET PO SCH (18:00)
[2023-05-23] MEDS ORDERED: HEPARIN NA (PORCINE) 5,000 UNITS/ML 1ML VIAL IVPUSH PRN ×4 (20:57→21:19)
[2023-05-23] MEDS ORDERED: HEPARIN - 25,000 UNIT in SODIUM CHLORIDE 495 ML IV SCH (21:00)
[2023-05-23] MEDS ORDERED: ENOXAPARIN NA (PORCINE) 60 MG/0.6 ML DISP.SYRIN SQ SCH (21:00)
[2023-05-23] MEDS ORDERED: HEPARIN INFUSION - 25,000 UNITS/500 ML INFUS.BAG IVPB SCH (21:30)
[2023-05-23] MEDS ORDERED: INSULIN SLIDING SCALE (NOVOLOG) 1 VIAL SQ ONE (21:58)
[2023-05-23] MEDS ORDERED: RANOLAZINE E.R. 500 MG TABLET (FP) PO SCH (22:00)
[2023-05-23] MEDS ORDERED: HEPARIN NA (PORCINE) 5,000 UNITS/ML 1ML VIAL SQ SCH (22:00)
[2023-05-23] MEDS ORDERED: FAMOTIDINE 20 MG TABLET PO SCH (22:00)
[2023-05-23] MEDS ORDERED: CARVEDILOL 12.5 MG TABLET (FP) PO SCH (22:00)
[2023-05-23] MEDS ORDERED: EMPAGLIFLOZIN (JARDIANCE) 10 MG TABLET PO SCH (22:00)
[2023-05-23] MEDS: RANOLAZINE E.R. 500 MG TABLET (FP) PO SCH (22:17)
[2023-05-24] MEDS: INSULIN SLIDING SCALE (NOVOLOG) 1 VIAL SQ SCH ×4 (06:14→21:14)
[2023-05-24] MEDS ORDERED: LEVOTHYROXINE NA 100 MCG TABLET (FP) PO SCH (07:00)
[2023-05-24] MEDS ORDERED: NITROGLYCERIN SUBLINGUAL 1/150 0.4 MG TAB SL PRN (07:34)
[2023-05-24 07:49] LABS: HEMOGLOBIN 15.2 GM/dL (11.7-16.9); MCH 30.1 pg (25.7-33.7); MCHC 33.8 g/dl (32.0-35.9); MEAN PLT VOLUME 8.7 fl (7.5-11.1); PLATELET COUNT 141 10^3/uL (134-434); RBC 5.05 M/mm3 (4.00-5.60); RDW 14.2 % (11.9-15.9); WHITE BLOOD COUNT 6.7 K/mm3 (4.0-10.0)
[2023-05-24 07:52] LABS: POTASSIUM 4.7 mmol/L (3.5-5.1)
[2023-05-24 07:53] LABS: CALCIUM 8.5 mg/dL (8.5-10.1)
[2023-05-24 07:54] LABS: BLOOD UREA NITROGEN 46.9 mg/dL (7-18)
[2023-05-24 07:57] LABS: CREATININE 2.6 mg/dL (0.55-1.3)
[2023-05-24] MEDS: FAMOTIDINE 20 MG TABLET PO SCH (09:13)
[2023-05-24] MEDS: ISOSORBIDE MONONITRATE 30 MG TAB.SR.24H (FP) PO SCH (09:14)
[2023-05-24] MEDS: EMPAGLIFLOZIN (JARDIANCE) 10 MG TABLET PO SCH (09:15)
[2023-05-24] MEDS: SODIUM CHLORIDE 1,000 ML IV SCH (09:15)
[2023-05-24] MEDS: RANOLAZINE E.R. 500 MG TABLET (FP) PO SCH ×2 (09:15→21:13)
[2023-05-24] MEDS: CARVEDILOL 6.25 MG TABLET (FP) PO SCH ×2 (09:15→21:14)
[2023-05-24] MEDS ORDERED: ASPIRIN COATED 81 MG TABLET.EC PO SCH (10:00)
[2023-05-24] MEDS ORDERED: ASPIRIN 81 MG CHEWABLE TABLETS PO SCH (10:00)
[2023-05-24] MEDS ORDERED: CLOPIDOGREL BISULFATE 75 MG TABLET (FP) PO SCH (10:00)
[2023-05-24] MEDS: CLOPIDOGREL BISULFATE 75 MG TABLET (FP) PO SCH (11:03)
[2023-05-24] MEDS: RIVAROXABAN 15 MG TABLET PO SCH (18:10)
[2023-05-24] MEDS: ATORVASTATIN CA 40 MG TABLET (FP) PO SCH (21:13)
[2023-05-25 07:27] LABS: HEMATOCRIT 45.7 % (35.4-49); HEMOGLOBIN 15.1 GM/dL (11.7-16.9); MCH 29.8 pg (25.7-33.7); MCHC 33.1 g/dl (32.0-35.9); MEAN CELL VOLUME 89.9 fl (80-96); MEAN PLT VOLUME 8.2 fl (7.5-11.1); PLATELET COUNT 142 10^3/uL (134-434); RBC 5.08 M/mm3 (4.00-5.60); RDW 13.8 % (11.9-15.9); WHITE BLOOD COUNT 7.1 K/mm3 (4.0-10.0)
[2023-05-25 07:52] LABS: BASO % 0.7 % (0-2.0); HEMATOCRIT 46.3 % (35.4-49); HEMOGLOBIN 15.2 GM/dL (11.7-16.9); LYMPH % 19.9 % (8-40); MCH 29.8 pg (25.7-33.7); MCHC 32.8 g/dl (32.0-35.9); MEAN CELL VOLUME 90.8 fl (80-96); MEAN PLT VOLUME 8.2 fl (7.5-11.1); MONO % 13.6 % (3.8-10.2); NEUT % 61.8 % (42.8-82.8); PLATELET COUNT 143 10^3/uL (134-434); RBC 5.11 M/mm3 (4.00-5.60); RDW 13.7 % (11.9-15.9); WHITE BLOOD COUNT 6.9 K/mm3 (4.0-10.0)
[2023-05-25] MEDS: INSULIN SLIDING SCALE (NOVOLOG) 1 VIAL SQ SCH ×5 (08:22→21:10)
[2023-05-25] MEDS: SODIUM CHLORIDE 1,000 ML IV SCH (08:23)
[2023-05-25] MEDS: RANOLAZINE E.R. 500 MG TABLET (FP) PO SCH ×2 (09:39→21:10)
[2023-05-25] MEDS: FAMOTIDINE 20 MG TABLET PO SCH (09:39)
[2023-05-25] MEDS: CARVEDILOL 6.25 MG TABLET (FP) PO SCH ×2 (09:39→21:10)
[2023-05-25] MEDS: ISOSORBIDE MONONITRATE 30 MG TAB.SR.24H (FP) PO SCH (09:39)
[2023-05-25] MEDS: CLOPIDOGREL BISULFATE 75 MG TABLET (FP) PO SCH (09:39)
[2023-05-25] MEDS: EMPAGLIFLOZIN (JARDIANCE) 10 MG TABLET PO SCH (11:27)
[2023-05-25 11:36] LABS: POTASSIUM 4.9 mmol/L (3.5-5.1)
[2023-05-25 11:39] LABS: BLOOD UREA NITROGEN 41.8 mg/dL (7-18); CALCIUM 8.3 mg/dL (8.5-10.1)
[2023-05-25 11:40] LABS: ALBUMIN 3.3 g/dl (3.4-5.0)
[2023-05-25 11:42] LABS: CREATININE 2.3 mg/dL (0.55-1.3)
[2023-05-25 11:44] LABS: BILIRUBIN,TOTAL 0.7 mg/dL (0.2-1); TOT PROT 6.6 g/dl (6.4-8.2)
[2023-05-25 15:00] LABS: URINE APPEARANCE CLEAR; URINE BILIRUBIN NEGATIVE (NEGATIVE); URINE COLOR YELLOW; URINE GLUCOSE (UA) 3+ (NEGATIVE); URINE KETONE NEGATIVE (NEGATIVE); URINE LEUK ESTERASE NEGATIVE (NEGATIVE); URINE NITRITE NEGATIVE (NEGATIVE); URINE PROTEIN NEGATIVE (NEGATIVE); URINE UROBILINOGEN 0.2 mg/dL (0.2-1.0)
[2023-05-25] MEDS: RIVAROXABAN 15 MG TABLET PO SCH (17:06)
[2023-05-25] MEDS: ATORVASTATIN CA 40 MG TABLET (FP) PO SCH (21:11)
[2023-05-26 03:44] VITALS: RESP 18
[2023-05-26] MEDS: INSULIN SLIDING SCALE (NOVOLOG) 1 VIAL SQ SCH ×3 (06:02→17:13)
[2023-05-26 07:26] LABS: HEMATOCRIT 44.7 % (35.4-49); HEMOGLOBIN 14.9 GM/dL (11.7-16.9); MCH 30.2 pg (25.7-33.7); MCHC 33.3 g/dl (32.0-35.9); MEAN CELL VOLUME 90.6 fl (80-96); MEAN PLT VOLUME 8.5 fl (7.5-11.1); PLATELET COUNT 146 10^3/uL (134-434); RBC 4.94 M/mm3 (4.00-5.60); RDW 14.3 % (11.9-15.9); WHITE BLOOD COUNT 7.2 K/mm3 (4.0-10.0)
[2023-05-26] MEDS ORDERED: EMPAGLIFLOZIN (JARDIANCE) 25 MG TABLET PO SCH (10:00)
[2023-05-26] MEDS ORDERED: REGADENOSON 0.4 MG/5 ML PRE-FILLED SYRINGE IVPUSH ONE ×2 (11:45→12:14)
[2023-05-26] MEDS: RANOLAZINE E.R. 500 MG TABLET (FP) PO SCH (13:47)
[2023-05-26] MEDS: FAMOTIDINE 20 MG TABLET PO SCH (13:47)
[2023-05-26] MEDS: ISOSORBIDE MONONITRATE 30 MG TAB.SR.24H (FP) PO SCH (13:47)
[2023-05-26] MEDS: CLOPIDOGREL BISULFATE 75 MG TABLET (FP) PO SCH (13:47)
[2023-05-26] MEDS: CARVEDILOL 6.25 MG TABLET (FP) PO SCH (13:48)
[2023-05-26 15:52] VITALS: BP 139/82; PULSE 64; TEMP 98.6
[2023-05-29] MEDS ORDERED: CHOLECALCIFEROL (VIT D3) 5000 UNITS (125 MCG) CAP PO SCH (10:00)
== END 2023-05-26 17:40 | disposition home or self-care (01) | DRG 303 ==
LOC: FER 09:44 → FM/S 13:10 → J4W 05-24 23:10
PROVIDERS: ADMIT Internal Medicine; ATTEND Student in an Organized Health Care Education/Training Program
DX: I25.110 Atherosclerotic heart disease of native coronary artery with unstable angina pectoris (principal); I50.22 Chronic systolic (congestive) heart failure; I13.0 Hypertensive heart and chronic kidney disease with heart failure and stage 1 through stage 4 chronic kidney disease, or unspecified chronic kidney disease; N17.9 Acute kidney failure, unspecified; I42.8 Other cardiomyopathies; I48.0 Paroxysmal atrial fibrillation; Z95.1 Presence of aortocoronary bypass graft; E03.9 Hypothyroidism, unspecified; Z95.0 Presence of cardiac pacemaker; E11.22 Type 2 diabetes mellitus with diabetic chronic kidney disease; N18.9 Chronic kidney disease, unspecified; E86.0 Dehydration
CPT/HCPCS: 0241U-QW; 36415; 71046-TC-FY; 78452-TC; 80048; 80053; 81003; 82570; 82962; 83036; 83690; 83735; 83880; 84133; 84156; 84300; 84439; 84443; 84484; 85025; 85027; 85610; 85730; 86850; 86900; 86901; 93005; 93010; 93017; 93306-TC; 99285-25; A9502; J1644; J2785